=== PATIENT | male | born 1980 | race African-American/Black ===

== ENCOUNTER 2019-01-14 21:52 | Observation (INO) | payer OTHER ==
[2019-01-14] MEDS ORDERED: Metoclopramide HCl 10 MG/2 ML VIAL ONE (23:36)
[2019-01-14] MEDS ORDERED: Ketorolac Tromethamine 30 MG/ML VIAL ONE (23:36)
[2019-01-14] MEDS ORDERED: diphenhydrAMINE 50 MG/ML VIAL ONE (23:36)
[2019-01-14 23:42] LABS: #Eosinphils 0.2 thou/uL (0.0-0.7); #Lymphocytes 2.1 thou/uL (1.20-3.40); #Monocytes 0.5 thou/uL (0.11-0.59); %Basophils 0.7 % (0.0-1.0); %Monocytes 7.5 % (0.0-10.0); %Neutrophils 58.9 % (42.0-75.0); Hemoglobin 12.2 g/dL (14.0-18.0); Mean Corpuscular HGB CONC 33.3 g/dL (32.0-36.0); Mean Corpuscular Hemoglobin 29.1 pg (27.0-31.0); Mean Corpuscular Volume 87.1 fL (78.0-98.0); Mean Platelet Volume 8.5 fL (7.4-10.4); Platelet Count 276 thou/uL (130-400); RBC Distribution Width 12.7 % (11.5-14.5); Red Blood Cell (RBC) Count 4.21 mill/uL (4.70-6.10); White Blood Cell (WBC) Count 6.8 thou/uL (4.8-10.8)
[2019-01-15 00:03] LABS: ALT (SGPT) 30 U/L (8-55); AST (SGOT) 24 U/L (5-34); Albumin 4.5 g/dL (3.5-5.0); Alkaline Phosphatase 80 U/L (40-150); Anion Gap 13 mmol/L (10-20); BUN (Urea Nitrogen) 17 mg/dL (8.9-20.6); Bilirubin, Total 0.5 mg/dL (0.2-1.2); Calc. Creatinine Clearance 0 mL/min (70-130); Calcium 9.6 mg/dL (7.8-10.44); Carbon Dioxide 25 mmol/L (22-29); Chloride 108 mmol/L (98-107); Estimated GFR-MDRD 27; Globulin 3.7 g/dL (2.4-3.5); Glucose 95 mg/dL (70-105); Potassium 3.5 mmol/L (3.5-5.1); Protein, Total 8.2 g/dL (6.0-8.3); Sodium 142 mmol/L (136-145)
[2019-01-15 01:40] LABS: Bilirubin Negative (Negative); Blood, Urine Trace (Negative); Clarity CLEAR (Clear); Glucose, Urine (Dipstick) Negative (Negative); Leukocyte Negative (Negative); Nitrite Negative (Negative); Protein, Urine (Dipstick) Trace mg/dL (Neg-Trace); Specific Gravity, Urine 1.006 (1.002-1.036); Urobilinogen 0.2 mg/dL (0.2-1.0); pH, Urine 6.5 (5.0-9.0)
[2019-01-15 01:45] LABS: Bacteria/HPF None Seen HPF (None Seen); Hyaline Casts/LPF 0-3 HYALINE CAST LPF (0-3 Hyaline); RBC/HPF 0-3 HPF (0-3); Squamous Epithelial None Seen HPF (0-3); WBC/HPF 0-3 HPF (0-3)
[2019-01-15 02:56] VITALS: BMI 36.3
[2019-01-15] MEDS ORDERED: Acetaminophen 325 MG TAB PO PRN (03:09)
[2019-01-15] MEDS ORDERED: Ondansetron ODT 4 MG TAB SL PRN (03:09)
[2019-01-15] MEDS ORDERED: HYDROcodone/Acetaminophen 5/325 mg Tablet PO PRN ×2 (03:09)
[2019-01-15] MEDS ORDERED: Ondansetron PF 4 MG/2 ML Vial IVP PRN (03:09)
[2019-01-15] MEDS: Sodium Chloride 0.45% 1,000 ML IV SCH ×2 (03:42→14:01)
--- NOTE | 2019-01-15 07:58 | RAD ---
FRadiograph chest one view: HISTORY: 38-year-old male with hypertension FINDINGS: Visualized lung curry are grossly clear. No pneumothorax. IMPRESSION: No acute pulmonary findings.
[2019-01-15] MEDS ORDERED: Senokot S 8.6-50 MG TAB PO PRN (08:13)
[2019-01-15] MEDS ORDERED: Zolpidem Tartrate 5 MG TAB PO PRN (08:13)
[2019-01-15] MEDS ORDERED: Diabetic Tussin 200 MG/10 ML UDCUP PO PRN (08:13)
[2019-01-15] MEDS ORDERED: Sodium Chloride 0.65% Nasal 44 ML BOT EA NARE PRN (08:13)
[2019-01-15] MEDS ORDERED: Eucerin (Mineral Oil/Petrolatum,White) 30 gm Jar TOP PRN (08:13)
[2019-01-15] MEDS ORDERED: Artificial Tears 18 DROP/0.9 ML EA EYE PRN (08:13)
[2019-01-15] MEDS ORDERED: Loperamide HCl 2 MG CAP PO PRN (08:13)
[2019-01-15] MEDS ORDERED: Bisacodyl 10 MG SUPP PR PRN (08:13)
[2019-01-15] MEDS ORDERED: hydrALAZINE 20 MG/ML VIAL SLOW IVP PRN (08:13)
[2019-01-15] MEDS ORDERED: Cepastat Lozenges 1 LOZ PO PRN (08:13)
[2019-01-15] MEDS ORDERED: Loratadine 10 MG TAB PO PRN (08:13)
[2019-01-15] MEDS ORDERED: Calcium Carbonate 500 MG ChewTAB PO PRN (08:13)
[2019-01-15] MEDS ORDERED: Lorazepam 0.5 MG TAB PO PRN (08:13)
[2019-01-15] MEDS ORDERED: RIBAVIRIN PO SCH (09:00)
[2019-01-15] MEDS ORDERED: Ribavirin 200 MG CAP PO SCH (09:00)
[2019-01-15] MEDS ORDERED: RIBOFLAVIN 100 MG PO SCH (09:00)
--- NOTE | 2019-01-15 09:43 | ULT ---
FUltrasound renal: 01/15/2019 HISTORY: 38-year-old male with acute kidney injury superimposed on chronic kidney disease. FINDINGS: Bilateral renal parenchymal echogenicity is diffusely mildly increased, consistent with medical renal disease. No hydronephrosis bilaterally. No moderate sized or large cystic or solid renal mass identified. Right kidney: 10.5 x 5.5 x 5.5 cm. Left kidney: 10.5 x 5.5 x 5 cm. Normal appearance of urinary bladder with volume of 515 mL. IMPRESSION: 1. No hydronephrosis. 2. Abnormal renal parenchymal echogenicity is evidence for medical renal disease.
[2019-01-15] MEDS ORDERED: Amlodipine 10 MG TAB PO SCH ×2 (10:45→21:00)
[2019-01-15 10:56] LABS: Creatinine, Urine 129.77 mg/dL (63-166)
[2019-01-15] MEDS ORDERED: Carvedilol 6.25 MG TAB PO SCH (11:00)
[2019-01-15 11:10] LABS: Bilirubin Negative (Negative); Blood, Urine Negative (Negative); Clarity CLEAR (Clear); Glucose, Urine (Dipstick) Negative (Negative); Leukocyte Negative (Negative); Nitrite Negative (Negative); Protein, Urine (Dipstick) Trace mg/dL (Neg-Trace); Specific Gravity, Urine 1.009 (1.002-1.036); Urobilinogen 0.2 mg/dL (0.2-1.0)
--- NOTE | 2019-01-15 11:35 | HP ---
PRIMARY CARE PHYSICIAN: Dr. Trevino, [facility]. REASON FOR ADMISSION: Acute kidney failure. HISTORY OF PRESENT ILLNESS: A 38-year-old male, who has underlying history of hypertension and obesity. The patient was told by his primary care physician that he has underlying chronic kidney disease. The patient does not have any more detail about that. The patient has migraine headache. Lately, his migraine headache is getting worse. Previously, he was taking ibuprofen, but subsequently his primary care physician was instructed him to take Excedrin as needed basis. He was requiring exited in almost every other day and sometimes more than twice per day. He denies any focal neurological deficit. He denies any aura associated with migraine. He denies any fever, chills, or focal motor neurological symptoms, but yesterday, he had typical migraine type of headache and it was associated with vomiting and that is why he decided to come to emergency room for evaluation. In the emergency room, he was slightly hypertensive. His routine blood test showed acute on chronic kidney failure. His creatinine in our hospital in 2016, 1.56 and today 3.21. The patient was started on IV fluid. Subsequently, he was admitted to telemetry floor for observation. The patient denies any constipation, diarrhea, melena, or hematochezia. He denies any fever, chills, or UTI symptoms. He denies any chronic pain other than migraine headache. REVIEW OF SYSTEMS: CONSTITUTIONAL: Negative for weight loss or gain, ability to conduct usual activities. SKIN: Negative for rash, itching. EYES: Negative for double vision, pain. ENT/MOUTH: Negative for nose bleeding, neck stiffness, pain, tenderness. CARDIOVASCULAR: Negative for palpitations, dyspnea on exertion, orthopnea. RESPIRATORY: Negative for shortness of breath, wheezing, cough, hemoptysis, fever or night sweats. GASTROINTESTINAL: Negative for poor appetite, abdominal pain, heartburn, nausea, vomiting, constipation, or diarrhea. GENITOURINARY: Negative for urgency, frequency, dysuria, nocturia. MUSCULOSKELETAL: Negative for pain, swelling. NEUROLOGIC/PSYCHIATRIC: Negative for anxiety, depression. ALLERGY/IMMUNOLOGIC: Negative for skin rash, bleeding tendency. Please see my HPI for pertinent positives and negatives. All other review of systems reviewed and negative except as mentioned in HPI. PAST MEDICAL HISTORY: Chronic kidney disease stage 3, hypertension, obesity, and history of cervical C5-C6 fracture. PAST SURGICAL HISTORY: Reviewed and negative. PAST PSYCHIATRIC HISTORY: Anxiety and depression. SOCIAL HISTORY: The patient drinks alcohol socially once a month. He denies smoking. He denies any other illicit drug abuse. He is . FAMILY HISTORY: Hypertension runs among several family members. ALLERGIES: NO KNOWN DRUG ALLERGIES. CURRENT HOME MEDICATIONS: 1. Amlodipine 10 mg daily. 2. Lisinopril 40 mg daily. 3. Lorazepam 0.5 mg b.i.d. p.r.n. 4. Zoloft 100 mg p.o. daily. 5. Excedrin 2 tablets daily p.r.n. EMERGENCY ROOM COURSE: The patient has received Reglan, Toradol, Benadryl, and IV fluid. PHYSICAL EXAMINATION: VITAL SIGNS: On arrival, blood pressure 169/112, pulse 96, respiratory rate 20, temperature 97.9, and saturation 100% on room air. Weight 92.5 kg. GENERAL: The patient is currently alert and awake. No obvious acute distress. HEENT: Head, normocephalic and atraumatic. Eyes, pupils round and reactive to light. Extraocular muscle intact. ENT, oropharynx within normal limits. Moist mucous membranes. No oral lesion. No pharyngeal erythema. No exudate. NECK: Supple. No JVD. No thyromegaly. No carotid bruit. LUNGS: Clear to auscultation without any rhonchi or rales. CARDIAC: S1 and S2. Regular. No murmur. No gallop. No rub. ABDOMEN: Soft and obesity present. Bowel sounds present. Nontender and nondistended. No organomegaly. No mass. No suprapubic tenderness. BACK: Unremarkable. No CVA tenderness. EXTREMITIES: Upper extremities, passive movement of all joints are normal. Lower extremities, no edema. Good distal pulsation. SKIN: No skin rash. HEMATOLOGICAL SYSTEM: No lymphadenopathy. PSYCHIATRIC: Normal affect. SIGNIFICANT LABORATORY DATA: EKG showing normal sinus rhythm, T-wave inversion in lateral leads. LVH with repolarization changes. Significant labs, renal ultrasound unremarkable. Chronic renal disease noted. CBC; WBC 6.8, hemoglobin 12.2, and platelets were 276. BMP; sodium 142, potassium 3.5, chloride 108, carbon dioxide 25, BUN 17, creatinine 3.21, glucose 95, calcium 9.6. LFT; AST 24, ALT 30, alkaline phosphatase 80, albumin 4.5. Troponin negative. Urinalysis unremarkable. Chest x-ray based on my review, no acute cardiopulmonary process. ASSESSMENT AND PLAN: 1. Acute on chronic kidney failure, baseline chronic kidney disease stage 3, multifactorial etiology, suspecting from his previous nonsteroidal anti-inflammatory drug use as well as hypertension and nephrosclerosis. We did ultrasound kidney. We will consult Nephrology. We will check urine protein creatinine ratio. We will avoid nephrotoxins agent. We will check PTH, phosphorus, and vitamin D level. 2. Hypertension with hypertensive urgency. As the patient has left ventricular hypertrophy with repolarization changes, we will check aldosterone, plasma renin activity. 3. Hypertension chronically, not well controlled. We will continue with amlodipine 10 mg daily and Coreg 6.25 mg b.i.d. We will hold on lisinopril therapy and will use p.r.n. basis hydralazine. 4. Anxiety and depression. We will continue Zoloft 100 mg daily and lorazepam p.r.n. basis. 5. Obesity with BMI 36. Dietary education given. Weight loss education given. Healthy lifestyle measure discussed with the patient. 6. Migraine headache. The patient is advised to follow up with Neurology as an outpatient basis. We will control his pain with Tylenol p.r.n. basis. 7. Deep venous thrombosis prophylaxis, sequential compression devices boots. Gastrointestinal prophylaxis, Pepcid 20 mg p.o. daily. 8. Code status. The patient is full code. The patient does not have any surrogate decision maker. DISPOSITION PLAN: Based on clinical course, we will repeat renal function test tomorrow. If renal function remains stable in the same range, then the patient will need outpatient Nephrology followup for continuous monitoring of renal function. At that point, we will consider discharging him home tomorrow. Job ID: [id number]
--- NOTE | 2019-01-15 11:49 | CON ---
DATE OF CONSULTATION: 01/15/2019 CONSULTING PHYSICIAN: Brian Martinez MD REASON FOR CONSULTATION: Renal insufficiency. CHIEF COMPLAINT: Severe headache. HISTORY OF PRESENT ILLNESS: A 38-year-old male with known history of hypertension diagnosed in his early 20s as well as migraine headache, who presented to the hospital with acute onset of severe bitemporal headache associated with photophobia and an episode of emesis. The patient also reported to have his blood pressure markedly elevated at 190 at home. Pain persisted despite taking his usual medication of Maxalt sublingual, hence presentation to the emergency room. The patient was treated with ketorolac, normal saline, diphenhydramine, and Reglan with some improvement. Further evaluation revealed creatinine of 3.21, hence Nephrology consult for further evaluation and treatment. The patient reported long-time use of NSAIDs for migraine, but had to stop that about 2 years ago due to elevation in creatinine. He however continues to take Excedrin Migraine two tablets up to 2 times a day for headaches and neck pain. The patient reportedly had an accident in the past during which he sustained neck injury and has chronic neck pain for which he takes Excedrin Migraine. The patient reportedly was diagnosed with hypertension in his early 20s and has been on antihypertensives, lisinopril and amlodipine. He also reported being on hydrochlorothiazide at some point in the past, but currently only takes lisinopril and amlodipine. He denied chest pain, change in bowel habit, palpitations, diarrhea, or poor intake. Appetite and intake has been great except an episode of emesis yesterday. PAST MEDICAL HISTORY: 1. Hypertension. 2. Migraine. 3. Chronic neck pain. PAST SURGICAL HISTORY: None. FAMILY HISTORY: Significant for hypertension in father and mother. Father from brain aneurysm. SOCIAL HISTORY: The patient lives with spouse. Denied alcohol or recreational drug use. He is a and most of his care is obtained through the services. ALLERGIES: NO KNOWN DRUG ALLERGIES REPORTED. HOME MEDICATIONS: 1. Amlodipine 10 mg daily at bedtime. 2. Excedrin Migraine 1 to 2 tablets b.i.d. p.r.n. 3. Lisinopril 40 mg daily. 4. Maxalt p.r.n. 5. Riboflavin 100 mg p.o. daily. 6. Sertraline 100 mg p.o. daily. 7. Lorazepam 0.5 mg p.o. b.i.d. REVIEW OF SYSTEMS: The patient's spouse reported that the patient snores at night and occasionally have apneic episodes. Other components of 12-point review of system performed was negative other than pertinent positives and negatives included in the history of present illness. PHYSICAL EXAMINATION: VITAL SIGNS: Temperature 98.3, pulse 84, respiratory rate 16, SpO2 of 98 on room air, and blood pressure is 140/80. GENERAL: Obese young male, in no obvious distress. Afebrile, anicteric, acyanotic. HEENT: Normocephalic, atraumatic. Pupils are equal and reacting to light. Oral mucosa is moist. NECK: Supple with no obvious masses or lymphadenopathy. CARDIOVASCULAR: Regular rhythm and rate with normal heart sounds one and two. RESPIRATORY: Fair air entry bilaterally with no obvious crackle or rhonchi. GI: Abdomen is obese, soft, nontender, nondistended with normal bowel sounds. EXTREMITIES: Grossly normal looking atraumatic with no edema, erythema, or cyanosis. NEUROLOGIC: Conscious, alert and oriented x3 with appropriate mental status. Cranial nerves 2 through 12 are intact. The patient moves all extremities. DIAGNOSTIC DATA: CMP performed on January 14, 2019, showed sodium 145, potassium 3.5, chloride 108, CO2 of 25, BUN 17, creatinine 3.21, glucose 95, calcium 9.6, total bilirubin 0.5, AST 24, ALT 30, alkaline phosphatase 80, total protein 8.2, albumin 4.5, globulin 3.7. CBC performed on January 14, 2019, showed WBC count of 6.8, hemoglobin of 12.2, MCV of 87.1, and platelet of 276. Urinalysis showed pH of 6.5, specific gravity of 1.006, negative glucose, ketones, nitrite, bilirubin, and leukocyte esterase. Microscopy showed 0-3 wbc and 0-3 rbc. EKG showed normal sinus rhythm with LVH and T-wave inversion in lateral leads. Chest x-ray showed no acute findings. Renal ultrasound performed earlier today showed normal size kidneys measuring 10.5 x 5.5 and 5, with increased echogenicity consistent with medical renal disease. No hydronephrosis was noted bilaterally. ASSESSMENT: 1. Renal failure: Acute is unclear. This is either acute kidney injury on chronic kidney disease or chronic kidney disease alone. The patient reported regular prolonged use of NSAIDs in the past, making NSAID nephropathy most likely. He also has had longstanding hypertension, making hypertensive nephropathy equally likely. Urinalysis, however, showed trace protein. 2. The patient continues to use NSAIDs in the form of Excedrin Migraine, which contains 250 mg of aspirin. He takes about 2 tablets b.i.d., that is about 1000 mg daily. He also is on lisinopril 40 mg daily. Acute reversible component from hemodynamic effect of NSAID and lisinopril cannot be ruled out. 3. Hypertension: This occurring at an early age associated with features of hypertensive heart disease and history of aneurysm in father points to secondary hypertension. The patient also has history of snoring and apneic spells as narrated by spouse. Secondary hypertension from obstructive sleep apnea and primary hyperaldosteronism is possible. 4. Moderate obesity. 5. Chronic neck pain. 6. Migraine headache. 7. Suspected CORY: given history of snoring and apeneic spells while asleep as per spouse PLAN: 1. Agree with IV fluid therapy. 2. We will add Coreg 6.25 to amlodipine. 3. We will hold lisinopril at this time. 4. Avoid NSAIDs including Excedrin Migraine. 5. We will get urine electrolytes, as well as urine protein quantification. 6. We will also get serum aldosterone and renin activity. 7. The patient has been advised to follow up with PCP for further referral for sleep study. 8. We will monitor renal function with IV fluid therapy to see if there is any reversible component while holding lisinopril and avoiding NSAIDs. Many thanks for involving us in the care of this patient. We will follow along with you. Job ID: [id number] [facility] SYSTEMColleen
[2019-01-15 13:27] LABS: Anion Gap 13 mmol/L (10-20); BUN (Urea Nitrogen) 21 mg/dL (8.9-20.6); BUN/Creatinine Ratio 6.48; Calc. Creatinine Clearance 45 mL/min (70-130); Calcium 8.9 mg/dL (7.8-10.44); Carbon Dioxide 25 mmol/L (22-29); Chloride 109 mmol/L (98-107); Estimated GFR-MDRD 26; Glucose 99 mg/dL (70-105); Phosphorus 3.1 mg/dL (2.3-4.7); Potassium 3.5 mmol/L (3.5-5.1); Sodium 143 mmol/L (136-145)
[2019-01-15] MEDS: Carvedilol 6.25 MG TAB PO SCH (21:43)
[2019-01-15] MEDS: Acetaminophen 500 MG TAB PO PRN (21:43)
[2019-01-16] MEDS: Sodium Chloride 0.45% 1,000 ML IV SCH (01:47)
[2019-01-16 05:25] LABS: #Eosinphils 0.2 thou/uL (0.0-0.7); #Lymphocytes 1.7 thou/uL (1.20-3.40); #Monocytes 0.5 thou/uL (0.11-0.59); #Neutrophils 2.8 thou/uL (1.40-6.50); %Basophils 0.2 % (0.0-1.0); %Eosinophils 3.4 % (0.0-10.0); %Lymphocytes 32.4 % (21.0-51.0); %Monocytes 8.9 % (0.0-10.0); %Neutrophils 55.1 % (42.0-75.0); Hemoglobin 10.3 g/dL (14.0-18.0); Mean Corpuscular HGB CONC 33.5 g/dL (32.0-36.0); Mean Corpuscular Hemoglobin 29.2 pg (27.0-31.0); Mean Corpuscular Volume 87.1 fL (78.0-98.0); Mean Platelet Volume 8.6 fL (7.4-10.4); Platelet Count 236 thou/uL (130-400); RBC Distribution Width 12.4 % (11.5-14.5); Red Blood Cell (RBC) Count 3.55 mill/uL (4.70-6.10); White Blood Cell (WBC) Count 5.1 thou/uL (4.8-10.8)
[2019-01-16 05:45] LABS: Albumin 3.8 g/dL (3.5-5.0); Anion Gap 10 mmol/L (10-20); BUN (Urea Nitrogen) 21 mg/dL (8.9-20.6); BUN/Creatinine Ratio 6.58; Calc. Creatinine Clearance 46 mL/min (70-130); Calcium 8.8 mg/dL (7.8-10.44); Carbon Dioxide 25 mmol/L (22-29); Chloride 111 mmol/L (98-107); Estimated GFR-MDRD 27; Glucose 96 mg/dL (70-105); Phosphorus 3.5 mg/dL (2.3-4.7); Potassium 3.7 mmol/L (3.5-5.1); Sodium 142 mmol/L (136-145)
[2019-01-16] MEDS: Carvedilol 6.25 MG TAB PO SCH (08:46)
[2019-01-16] MEDS: Famotidine 20 MG TAB PO SCH (08:46)
[2019-01-16] MEDS: Amlodipine 10 MG TAB PO SCH (08:46)
[2019-01-16] MEDS ORDERED: Carvedilol 6.25 MG TAB PO SCH (10:15)
--- NOTE | 2019-01-16 11:12 | PRG ---
DATE OF SERVICE: 01/16/2019 SUBJECTIVE: A 38-year-old male admitted with headache and elevated blood pressure, who has been followed by Nephrology for renal failure. Headache has subsided and the patient is feeling better. He is making urine. Denied nausea, vomiting, chest pain, abdominal pain, or dysuria. OBJECTIVE: VITAL SIGNS: Temperature 97.9, pulse 76, respiratory rate 20, SpO2 of 97 on room air, and blood pressure 157/81. GENERAL: Young male, in no obvious distress. Afebrile, anicteric, and acyanotic. HEENT: Normocephalic and atraumatic. Pupils are equal and reacting to light. RESPIRATORY: Good air entry bilaterally with no crackle or rhonchi. CARDIOVASCULAR: Regular rhythm and rate. Normal heart sounds 1 and 2. Systolic murmur heard in the aortic area noted. GI: Abdomen is obese, soft, nontender, and nondistended with normal bowel sounds. EXTREMITIES: Grossly normal looking atraumatic with no edema, erythema, or cyanosis. Distal pulses are palpable. NEUROLOGIC: Conscious, alert, and oriented x3 with appropriate mental status. Cranial nerves 2 through 12 are intact. The patient moves all extremities. DIAGNOSTIC DATA: Renal function panel today showed; sodium 142, potassium 3.7, chloride 111, CO2 of 25, BUN 21, creatinine 3.19, glucose 96, calcium 8.8, phosphorus 3.5, and albumin 3.8. A 25-hydroxyvitamin D is 9.6. PTH intact is 321.9. Random total urine is 90 mg/dL. Random urine creatinine is 129.77 and random urine sodium is 68. Fractional excretion of sodium is 1.19%. CBC today showed WBC count of 5.1, hemoglobin of 10.3, and platelet of 236. ASSESSMENT: 1. Renal failure: This is either acute kidney injury on chronic kidney disease or chronic kidney disease alone. The patient has overt evidence of chronic kidney disease given the ultrasound showing echogenicity as well as secondary hyperparathyroidism. Etiology is unclear. May acute glomerulonephritis or nonsteroidal anti-inflammatory drug nephropathy seems likely. Creatinine went down a little bit with IV fluids. There may be some reversible component. Fractional excretion of sodium is only 1.16, which is not overtly in support of prerenal etiology. 2. Secondary hyperparathyroidism due to chronic kidney disease. 3. Hypertension. Control is better, but still suboptimal. 4. Heart murmur of unclear etiology. 5. Possible obstructive sleep apnea. Spouse reported snoring and apneic spells. 6. Moderate obesity. PLAN: 1. We will substitute normal saline with Ringer's lactate due to worsening hyperchloremia. 2. We will increase carvedilol to 25 mg p.o. b.i.d. while continuing amlodipine 10. We will continue to hold lisinopril at this time. 3. We will get coagulation panel and we will proceed with renal biopsy tomorrow if there is no significant improvement in renal function. Care plan was discussed with the patient and spouse and they verbalized understanding. 4. We will also start the patient on calcitriol and 25-hydroxyvitamin D supplementation for hyperparathyroidism and vitamin D deficiency. 5. We will get renal function panel in the morning. Job ID: [id number]
[2019-01-16] MEDS: Lactated Ringer's 1,000 ML IV SCH ×2 (11:25→21:09)
--- NOTE | 2019-01-16 17:31 | PDOC.PN ---
- Subjective Encounter Start Date: 01/16/19 Encounter Start Time: 17:29 Patient lying in bed with significant other at bedside. He denies chest pain, palpitations, shortness of breath or abdominal pain. Nephrology following and plan for lactated ringers and titrate BB. - Objective MAR Reviewed: Yes Vital Signs & Weight: Vital Signs (12 hours) Temp Pulse Resp BP BP Pulse Ox 01/16/19 15:54 97.8 F 66 16 144/94 H 97 01/16/19 11:48 98.3 F 81 16 160/103 H 97 01/16/19 11:25 160/103 H 01/16/19 08:46 79 157/81 H 01/16/19 08:00 97.9 F 76 20 154/100 H 97 Weight Weight 225 lb 9.6 oz I&O: 01/15/19 01/16/19 01/17/19 06:59 06:59 06:59 Intake Total 1141 3540 Output Total 500 Balance 1141 3040 Result Diagrams: 01/16/19 04:38 01/16/19 04:38 Radiology Reviewed by me: Yes EKG Reviewed by me: Yes Phys Exam - Physical Examination Constitutional: NAD HEENT: moist MMs, oral pharynx no lesions Neck: supple Respiratory: no wheezing, clear to auscultation bilateral Cardiovascular: RRR 2/6 systolic murmur Gastrointestinal: soft, positive bowel sounds Musculoskeletal: pulses present Neurological: non-focal, moves all 4 limbs Lymphatic: no nodes Psychiatric: normal affect, A&O x 3 Skin: no rash, cap refill <2 seconds Dx/Plan (1) Acute renal failure superimposed on stage 3 chronic kidney disease Code(s): N17.9 - ACUTE KIDNEY FAILURE, UNSPECIFIED; N18.3 - CHRONIC KIDNEY DISEASE, STAGE 3 (MODERATE) Status: Acute (2) Anxiety and depression Code(s): F41.9 - ANXIETY DISORDER, UNSPECIFIED; F32.9 - MAJOR DEPRESSIVE DISORDER, SINGLE EPISODE, UNSPECIFIED Status: Chronic (3) Hypertension Code(s): I10 - ESSENTIAL (PRIMARY) HYPERTENSION Status: Chronic (4) Obesity (BMI 30-39.9) Code(s): E66.9 - OBESITY, UNSPECIFIED Status: Chronic - Plan cont current plan of care, plan discussed w/ family * Nephrology following, continuing with lactated ringers and current plan, ifno improvement may consider proceeding with renal bx * Titrate BB and continue with amlodipine, home CHAY on hold * Monitor BMP * Continue other home meds *
[2019-01-16] MEDS: Carvedilol 25 MG TAB PO SCH (20:36)
[2019-01-16] MEDS: Acetaminophen 500 MG TAB PO PRN (21:28)
[2019-01-17 05:28] LABS: #Eosinphils 0.2 thou/uL (0.0-0.7); #Lymphocytes 2.3 thou/uL (1.20-3.40); #Monocytes 0.4 thou/uL (0.11-0.59); #Neutrophils 2.6 thou/uL (1.40-6.50); %Basophils 0.8 % (0.0-1.0); %Eosinophils 3.6 % (0.0-10.0); %Lymphocytes 41.1 % (21.0-51.0); %Monocytes 8.1 % (0.0-10.0); %Neutrophils 46.5 % (42.0-75.0); Hemoglobin 9.7 g/dL (14.0-18.0); Mean Corpuscular HGB CONC 34.3 g/dL (32.0-36.0); Mean Corpuscular Hemoglobin 29.8 pg (27.0-31.0); Mean Corpuscular Volume 86.9 fL (78.0-98.0); Mean Platelet Volume 8.5 fL (7.4-10.4); Platelet Count 222 thou/uL (130-400); RBC Distribution Width 12.3 % (11.5-14.5); Red Blood Cell (RBC) Count 3.24 mill/uL (4.70-6.10); White Blood Cell (WBC) Count 5.5 thou/uL (4.8-10.8)
[2019-01-17 05:29] LABS: PTT 30.9 SEC (22.9-36.1); Prothrombin Time 13.5 SEC (12.0-14.7)
[2019-01-17 05:45] LABS: Albumin 3.7 g/dL (3.5-5.0); Anion Gap 12 mmol/L (10-20); BUN (Urea Nitrogen) 21 mg/dL (8.9-20.6); BUN/Creatinine Ratio 7.02; Calc. Creatinine Clearance 49 mL/min (70-130); Calcium 8.8 mg/dL (7.8-10.44); Carbon Dioxide 23 mmol/L (22-29); Chloride 110 mmol/L (98-107); Estimated GFR-MDRD 29; Glucose 88 mg/dL (70-105); Phosphorus 4.2 mg/dL (2.3-4.7); Potassium 3.5 mmol/L (3.5-5.1); Sodium 141 mmol/L (136-145)
--- NOTE | 2019-01-17 08:29 | PRG ---
DATE OF SERVICE: 01/17/2019 SUBJECTIVE: A 38-year-old male being seen for renal failure of unclear etiology and acuity. The patient initially was admitted due to severe headaches, which has subsided at this time. Denied any new complaints. Denied nausea, vomiting, or chest pain. OBJECTIVE: VITAL SIGNS: Temperature 97.6, pulse 66, respiratory rate 16, SpO2 of 98 on room air, and blood pressure 134/84. GENERAL: No acute issues. Afebrile, anicteric, and acyanotic. HEENT: Normocephalic and atraumatic. Pupils are equal and reactive to light. CARDIOVASCULAR: Regular rhythm and rate. Normal heart sounds 1 and 2. Systolic murmur noted. RESPIRATORY: Good air entry bilaterally with no obvious crackle or rhonchi. GI: Obese, soft, nontender, and nondistended with normal bowel sounds. EXTREMITIES: Grossly normal looking atraumatic with no edema or erythema. NEUROLOGIC: Conscious and alert, oriented x3 with appropriate mental status. Moves all extremities. Cranial nerves 2 through 12 are intact. DIAGNOSTIC DATA: Renal function panel shows sodium 141, potassium 3.5, chloride 110, CO2 of 23, BUN 21, creatinine 2.99, BUN and creatinine ratio 7.02, glucose 88, calcium 8.2, phosphorus 4.2, albumin 3.9. CBC showed WBC count of 5.5, hemoglobin of 9.7, and platelet of 222. PLAN/ASSESSMENT: 1. Renal failure: Acute kidney injury on chronic kidney disease versus chronic kidney disease stage 3. Etiology is unclear. There has been no significant improvement with IVF. The patient however has history of hypertension and used NSAID regularly in the past. We will DC IVF and get renal biopsy today. 2. Hypertension: Control is suboptimal. We will substitute amlodipine with nifedipine with a view to increase dose to get adequate BP control.Continue Coreg. 3. Secondary hyperparathyroidism. Continue vitamin D analog. 4. Vitamin D deficiency. Continue with vitamin D supplementation. Addendum: Patient could not get renal biopsy but he reported he took excedrin migraine about 4 days ago and interventional radiologist wanted 7 days off ASA Patient will not have renal biopsy from home. He can be discharged to follow up in the office for further arrangement. Job ID: [id number] [facility]
[2019-01-17] MEDS ORDERED: Calcitriol 0.25 MCG CAP PO SCH (09:00)
[2019-01-17] MEDS ORDERED: Ergocalciferol 1.25 MG(50,000 UNITS) CAP PO SCH (09:00)
[2019-01-17] MEDS: Amlodipine 10 MG TAB PO SCH (09:23)
[2019-01-17] MEDS: Carvedilol 25 MG TAB PO SCH (09:23)
[2019-01-17] MEDS: Famotidine 20 MG TAB PO SCH (09:24)
[2019-01-17] MEDS: Lactated Ringer's 1,000 ML IV SCH (10:39)
[2019-01-17 12:16] VITALS: TEMP 97.9
[2019-01-17] MEDS ORDERED: NIFEdipine XL 30 MG TAB PO SCH (13:30)
[2019-01-17 14:50] VITALS: BP 139/89
--- NOTE | 2019-01-18 05:33 | DIS ---
DATE OF ADMISSION: 01/15/2019 DATE OF DISCHARGE: 01/17/2019 ALLERGIES: NO KNOWN DRUG ALLERGIES. CHIEF COMPLAINT: Migraine headache with associated emesis, hypertension. FINAL DIAGNOSES: 1. Renal failure, with creatinine around 3, unknown etiology, questionably secondary to hypertensive nephropathy versus nonsteroidal anti-inflammatory drug-induced, also unclear if this is acute kidney injury or chronic kidney disease stage 3. 2. Secondary hyperparathyroidism. 3. Vitamin D deficiency. 4. Hypertension. 5. Migraine. 6. Anxiety and depression. PROCEDURE PERFORMED: None. IMAGING RESULTS: 1. Chest x-ray, no acute pulmonary findings. Renal ultrasound, no hydronephrosis. 2. Abnormal renal parenchymal echogenicity is evidence for medical renal disease. LABORATORY RESULTS: White blood cell count 5.5, hemoglobin 9.7, and hematocrit 28.2, platelets are 12.3. PT 13.5, INR 1.0, APTT 30.9. Sodium 141, potassium 3.5, chloride 110, carbon dioxide 23, anion gap 12, BUN 21, creatinine 2.99, GFR 29, phosphorus 3.7, vitamin D total 9.6, PTH 321.9. Urinalysis was negative. CONSULTATIONS: Dr. Shell of Nephrology. VITAL SIGNS: Blood pressure 139/89, temperature 97.9, pulse 72, O2 saturation 100%. HOSPITAL COURSE: The patient is a pleasant 38-year-old male with past medical history significant for history of migraines with long-standing NSAID use, hypertension, anxiety, and depression, who presented to the hospital with complaints of a migraine headache with headache with associated emesis. The patient also states that his systolic blood pressure at home was running in the 190s, and so he reported to the ER for further workup and treatment. On arrival, labs were most notable for elevated creatinine of around 3. Previous creatinine was noted to be around 1.5. Dr. Shell of Nephrology was consulted. All nephrotoxins were stopped including the patient's lisinopril. His carvedilol was titrated up and amlodipine was continued. The patient was placed both on sodium chloride and then lactated Ringer's throughout his stay and creatinine was monitored closely, however, there was no improvement in his creatinine. Dr. Shell did recommend renal biopsy based on the patient's renal ultrasound, however, ultimately this was not performed as the patient had Excedrin migraine 3 days prior to his admission, and this was deemed unsafe by Interventional Radiology, as the patient would have needed to hold any type of anti-platelet for 7 days. The patient's blood pressure medications were titrated, and ultimately the patient was placed on nifedipine and his carvedilol was titrated up from 6.25 mg b.i.d. to [address] Shell also recommended continuing vitamin D supplementation along with outpatient renal biopsy and followup at the [facility]. On the day of discharge, the patient feels well. His headaches have completely resolved. He has no chest pain or shortness of breath. He has ambulated around his room without issue. He has had adequate urine output as well. PHYSICAL EXAMINATION: GENERAL: The patient is awake and alert, in no distress. HEENT: Atraumatic, normocephalic. Eye movements intact. NECK: Supple. No lymphadenopathy. No carotid bruits. No JVD. RESPIRATORY: Regular respiratory rate and pattern. Clear to auscultation bilaterally. CV: S1 and S2. Regular rate and rhythm. No appreciable murmurs, rubs, or gallops. GI: Soft, nontender, normal bowel sounds. PERIPHERAL VASCULAR: No lower extremity pitting edema. +2 DP pulses bilaterally. MUSCULOSKELETAL: No joint effusions or swelling. NEUROLOGIC: Cranial nerves 2 through 12 are intact. No focal deficits. SKIN: Warm and dry. No rash. CONDITION AT DISCHARGE: Stable. DISCHARGE MEDICATIONS: 1. Lorazepam 0.5 mg tablet one tablet p.o. b.i.d. p.r.n. 2. Vitamin B2 supplement 100 mg tablet, one tablet daily. 3. Sertraline 100 mg tablet, one tablet daily. 4. Calcitriol 0.25 mcg capsule, one capsule p.o. daily. 5. Carvedilol 25 mg tablet, one tablet p.o. b.i.d. 6. Drisdol 1.25 mg capsule one p.o. q.7 days. 7. Nifedipine 60 mg extended release tablet, one tablet p.o. daily. DISCHARGE DISPOSITION: Home. PLAN: The patient has been counseled extensively on avoiding nephrotoxins. We have stopped his lisinopril, and he will discontinue all NSAID use. He will follow up with the [facility] for outpatient renal biopsy, and further recommendations regarding his renal insufficiency. He will continue a renal diet. Care discussed with Dr. Shell prior to discharge, who agrees with the above plan. Job ID: [id number]
== END 2019-01-17 16:25 | disposition home or self-care (01) ==
LOC: ERS 21:52 → 2SW 01-15 02:53
PROVIDERS: ADMIT Internal Medicine; ATTEND Internal Medicine
DX: I12.9 Hypertensive chronic kidney disease with stage 1 through stage 4 chronic kidney disease, or unspecified chronic kidney disease (principal); N18.3 Chronic kidney disease, stage 3 (moderate); N17.9 Acute kidney failure, unspecified; N25.81 Secondary hyperparathyroidism of renal origin; G43.009 Migraine without aura, not intractable, without status migrainosus; E55.9 Vitamin D deficiency, unspecified; F41.8 Other specified anxiety disorders; I16.0 Hypertensive urgency; G89.29 Other chronic pain; M54.2 Cervicalgia; E66.9 Obesity, unspecified; Z68.36 Body mass index [BMI] 36.0-36.9, adult; Z79.899 Other long term (current) drug therapy
CPT/HCPCS: 36415; 36416; 71045; 76770; 80053; 80069; 81003; 81015; 82088; 82306; 82570; 83970; 84156; 84244; 84300; 84484; 85025; 85610; 85730; 93005; 96361; 96365; 96375; G0378; J1200; J1885; J2765

== ENCOUNTER 2020-07-23 08:24 | Day surgery (SDC) | payer OTHER ==
[2020-07-20 11:53] VITALS: BMI 34.2
[2020-07-23 08:45] LABS: #Eosinphils 0.2 thou/uL (0.0-0.7); #Lymphocytes 2.3 thou/uL (1.20-3.40); #Monocytes 0.4 thou/uL (0.11-0.59); #Neutrophils 4.6 thou/uL (1.40-6.50); %Basophils 0.6 % (0.0-1.0); %Eosinophils 3.3 % (0.0-10.0); %Lymphocytes 30.4 % (21.0-51.0); %Monocytes 5.4 % (0.0-10.0); %Neutrophils 60.3 % (42.0-75.0); Hemoglobin 9.3 g/dL (14.0-18.0); Mean Corpuscular HGB CONC 34.9 g/dL (32.0-36.0); Mean Corpuscular Hemoglobin 29.9 pg (27.0-31.0); Mean Corpuscular Volume 85.6 fL (78.0-98.0); Platelet Count 268 thou/uL (130-400); RBC Distribution Width 11.9 % (11.5-14.5); White Blood Cell (WBC) Count 7.6 thou/uL (4.8-10.8)
[2020-07-23 08:54] LABS: PTT 33.2 sec (22.9-36.1)
[2020-07-23 09:00] LABS: Albumin 4.8 g/dL (3.5-5.0); Anion Gap 16 mmol/L (10-20); BUN (Urea Nitrogen) 75 mg/dL (8.9-20.6); BUN/Creatinine Ratio 8.15; Calc. Creatinine Clearance 15 mL/min (70-130); Calcium 9.6 mg/dL (7.8-10.44); Carbon Dioxide 26 mmol/L (22-29); Chloride 104 mmol/L (98-107); Estimated GFR-MDRD 8; Glucose 103 mg/dL (70-105); Phosphorus 4.6 mg/dL (2.3-4.7); Potassium 4.5 mmol/L (3.5-5.1); Sodium 141 mmol/L (136-145)
[2020-07-23 09:33] VITALS: BP 131/85; TEMP 98.2
--- NOTE | 2020-07-23 09:37 | ULT ---
US Renal Bilateral STANDARD History: Kidney injury Comparison: Ultrasound 2019 Findings: Real-time grayscale and color evaluation of the kidneys and urinary bladder was performed. Poor corticomedullary differentiation with increased echotexture. The right kidney measures 9.5 x 5 x 5.4 cm and the left kidney measures 10.5 x 5.2 x 5.1 cm. Urinary bladder is unremarkable. Impression: Echogenic kidneys with poor corticomedullary differentiation suggesting chronic medical r enal disease.
--- NOTE | 2020-07-23 11:02 | CT ---
Renal biopsy random, CT-guided Conscious sedation: At least 30 minutes spent with the patient for conscious sedation. HISTORY: Chronic kidney disease. FINDINGS: After explaining the procedure and answering all questions, limited CT imaging of the kidne ys was performed with patient prone. Sterile technique, buffered local anesthesia, conscious sedation, CT guidance, and a left posterolate ral approach were used to carefully advance the tip of a 17-gauge trocar needle to the hypovascular zone near the inferior pole of the left kidney. Needle was carefully engaged into the cortex, and pos ition confirmed with CT. A total of 3 18-gauge core biopsy specimens were obtained and submitted to Dr. Loera from pathology who confirmed specimen adequacy. Needle was removed. No evidence of complication. Patient tolerated the procedure well and was returne d to the holding area in good condition for further monitoring. IMPRESSION : Technically successful random renal biopsy. Pathology is pending.
--- NOTE | 2020-07-24 12:31 | CT ---
Renal biopsy random, CT-guided Conscious sedation: At least 30 minutes spent with the patient for conscious sedation. HISTORY: Chronic kidney disease. FINDINGS: After explaining the procedure and answering all questions, limited CT imaging of the kidne ys was performed with patient prone. Sterile technique, buffered local anesthesia, conscious sedation, CT guidance, and a left posterolate ral approach were used to carefully advance the tip of a 17-gauge trocar needle to the hypovascular zone near the inferior pole of the left kidney. Needle was carefully engaged into the cortex, and pos ition confirmed with CT. A total of 3 18-gauge core biopsy specimens were obtained and submitted to Dr. Loera from pathology who confirmed specimen adequacy. Needle was removed. No evidence of complication. Patient tolerated the procedure well and was returne d to the holding area in good condition for further monitoring. IMPRESSION : Technically successful random renal biopsy. Pathology is pending. Transcribed Date/Time: 07/24/2020 12:31 PM
== END 2020-07-23 12:20 | disposition home or self-care (01) ==
LOC: CT 08:24
PROVIDERS: ATTEND Internal Medicine Nephrology
PROC: BT22ZZZ Computerized Tomography (CT Scan) of Left Kidney (ICD-10-PCS; principal; 2020-07-23)
PROC: 0TB13ZX Excision of Left Kidney, Percutaneous Approach, Diagnostic (ICD-10-PCS; principal; 2020-07-23)
DX: N11.9 Chronic tubulo-interstitial nephritis, unspecified (principal); I12.9 Hypertensive chronic kidney disease with stage 1 through stage 4 chronic kidney disease, or unspecified chronic kidney disease; N18.9 Chronic kidney disease, unspecified; N17.9 Acute kidney failure, unspecified; F41.9 Anxiety disorder, unspecified; F32.9 Major depressive disorder, single episode, unspecified; E66.9 Obesity, unspecified; Z68.34 Body mass index [BMI] 34.0-34.9, adult
CPT/HCPCS: 36415; 50200; 76770; 77012; 80069; 85025; 85610; 85730; 88329

== ENCOUNTER 2021-09-09 07:36 | Inpatient (IN) | payer OTHER ==
[2021-09-09 08:37] LABS: #Basophils 0.1 thou/uL (0.0-0.2); #Eosinphils 0.1 thou/uL (0.0-0.7); #Monocytes 0.4 thou/uL (0.11-0.59); #Neutrophils 5.3 thou/uL (1.40-6.50); %Basophils 0.7 % (0.0-1.0); %Eosinophils 1.2 % (0.0-10.0); %Lymphocytes 25.7 % (21.0-51.0); %Monocytes 5.2 % (0.0-10.0); %Neutrophils 67.2 % (42.0-75.0); Hemoglobin 11.6 g/dL (14.0-18.0); Mean Corpuscular HGB CONC 34.5 g/dL (32.0-36.0); Mean Corpuscular Hemoglobin 31.8 pg (27.0-31.0); Mean Corpuscular Volume 92.4 fL (78.0-98.0); Mean Platelet Volume 7.8 fL (7.4-10.4); Platelet Count 271 thou/uL (130-400); RBC Distribution Width 16.1 % (11.5-14.5); Red Blood Cell (RBC) Count 3.64 mill/uL (4.70-6.10); White Blood Cell (WBC) Count 7.9 thou/uL (4.8-10.8)
[2021-09-09 09:00] LABS: ALT (SGPT) 11 U/L (8-55); AST (SGOT) 13 U/L (5-34); Albumin 4.7 g/dL (3.5-5.0); Alkaline Phosphatase 113 U/L (40-110); Anion Gap 28 mmol/L (10-20); Bilirubin, Total 0.6 mg/dL (0.2-1.2); Calc. Creatinine Clearance 0 mL/min (70-130); Carbon Dioxide 19 mmol/L (22-29); Chloride 91 mmol/L (98-107); Globulin 4.2 g/dL (2.4-3.5); Glucose 113 mg/dL (70-105); Lipase 245 U/L (8-78); Magnesium 2.4 mg/dL (1.6-2.6); Potassium 5.2 mmol/L (3.5-5.1); Protein, Total 8.9 g/dL (6.0-8.3); Sodium 133 mmol/L (136-145)
[2021-09-09 09:16] LABS: BUN (Urea Nitrogen) 181 mg/dL (8.9-20.6)
[2021-09-09] MEDS ORDERED: Heparin 10,000 UNITS/ 10 ML VIAL ONE ×2 (09:28→11:18)
[2021-09-09 10:52] LABS: HBSAg Index 0.24 S/CO (0-0.99); Hep B Core Total Ab Non-Reactive (NonReactive); Hep B Core Total Index 0.05 S/CO (0-0.79); Hep B Surf Ag Non-Reactive S/CO (NonReactive); Hep C IgG Ab Non-Reactive (NonReactive); Hep C Index 0.11 S/CO (0-0.79)
[2021-09-09 11:01] LABS: HBSAB Concentration 318.19 mIU/mL; Hep B Surf AB Reactive (NonReactive)
[2021-09-09] MEDS ORDERED: Propofol 500 MG/50 ML VIAL ONE (11:12)
[2021-09-09 11:13] LABS: SARS-CoV-2 NAA Rapid Test Not Detected (NotDetected)
[2021-09-09] MEDS ORDERED: Protamine Sulfate 50 MG/5 ML VIAL ONE (11:18)
[2021-09-09] MEDS ORDERED: Sodium Chloride 0.9% 30 ML ONE (11:18)
[2021-09-09] MEDS ORDERED: Bupivacaine PF 0.5% 30 ML VIAL ONE (11:18)
[2021-09-09] MEDS ORDERED: Lidocaine 1% w/Epinephrine 1:100K 20 ML VIAL ONE (11:18)
[2021-09-09] MEDS ORDERED: Heparin 5,000 UNITS/ML VIAL ONE (11:18)
[2021-09-09 11:25] LABS: Bacteria/HPF None Seen HPF (None Seen); Bilirubin Negative (Negative); Blood, Urine 1+ (Negative); Clarity Clear (Clear); Glucose, Urine (Dipstick) Normal (Negative); Ketone, Urine Negative (Negative); Leukocyte Negative Leu/uL (Negative); Nitrite Negative (Negative); Protein, Urine (Dipstick) 10 mg/dL (Neg-Trace); RBC/HPF 0-3 HPF (0-3); Squamous Epithelial None Seen HPF (0-3); Urobilinogen Normal mg/dL (Less than 2); WBC/HPF 0-3 HPF (0-3); pH, Urine 6.5 (5.0-9.0)
[2021-09-09] MEDS ORDERED: Midazolam HCl 2 mg/2 ml Vial ONE (11:53)
[2021-09-09] MEDS ORDERED: Sodium Bicarbonate 150 MEQ in Dextrose 5% in Water 1,000 ML IV SCH (12:00)
[2021-09-09] MEDS ORDERED: Ropivacaine 0.5% HCl/PF (150 MG/30 ML VIAL) ONE (12:01)
[2021-09-09] MEDS ORDERED: PROPOFOL 200 MG/20 ML VIAL ONE (12:01)
[2021-09-09] MEDS ORDERED: Lidocaine 1% PF 5 ML VIAL ONE (12:01)
[2021-09-09] MEDS ORDERED: ceFAZolin Sodium (SDC) 2 GM/100 ML BAG ONE (12:03)
[2021-09-09] MEDS ORDERED: Promethazine HCl 25 MG/ML VIAL IM PRN (13:52)
[2021-09-09] MEDS ORDERED: Ondansetron HCl/PF 4 MG/2 ML Vial IVP PRN (13:52)
[2021-09-09] MEDS ORDERED: Promethazine HCl 25 MG/ML VIAL IVPB PRN (13:52)
[2021-09-09] MEDS ORDERED: Fentanyl 100 MCG/2 ML VIAL ONE ×2 (14:01→14:59)
[2021-09-09] MEDS ORDERED: traMADol HCl 50 MG TAB PO PRN (14:16)
[2021-09-09] MEDS ORDERED: Cyclobenzaprine 10 MG TAB PO SCH (20:15)
[2021-09-09] MEDS: Acetaminophen 500 MG TAB PO PRN (20:40)
[2021-09-10 01:52] VITALS: BMI 32.6
[2021-09-10] MEDS: HYDROcodone/Acetaminophen 5/325 mg Tablet PO PRN ×4 (04:18→16:46)
[2021-09-10] MEDS ORDERED: Cyclobenzaprine 10 MG TAB PO SCH (06:00)
[2021-09-10 06:51] LABS: Anion Gap 20 mmol/L (10-20); BUN (Urea Nitrogen) 125 mg/dL (8.9-20.6); Calc. Creatinine Clearance 7 mL/min (70-130); Calcium 8.9 mg/dL (7.8-10.44); Carbon Dioxide 31 mmol/L (22-29); Chloride 87 mmol/L (98-107); Glucose 109 mg/dL (70-105); Magnesium 2.2 mg/dL (1.6-2.6); Potassium 4.4 mmol/L (3.5-5.1); Sodium 134 mmol/L (136-145)
[2021-09-10] MEDS: Acetaminophen 500 MG TAB PO PRN ×2 (07:42→13:57)
[2021-09-10] MEDS ORDERED: Heparin 10,000 UNITS/ 10 ML VIAL ONE (09:36)
[2021-09-10] MEDS ORDERED: Carvedilol 6.25 MG TAB PO SCH ×3 (10:10→21:00)
[2021-09-10 17:08] VITALS: BP 125/67; TEMP 98.4
== END 2021-09-10 17:51 | disposition home or self-care (01) | DRG 673 ==
LOC: ERS 07:36 → SDC 11:31 → ONC 18:17 → MSONC 09-10 11:06
PROVIDERS: ADMIT Internal Medicine; ATTEND Internal Medicine
PROC: 5A1D70Z Performance of Urinary Filtration, Intermittent, Less than 6 Hours Per Day (ICD-10-PCS; principal; 2021-09-09)
PROC: 031C0ZF Bypass Left Radial Artery to Lower Arm Vein, Open Approach (ICD-10-PCS; 2021-09-09)
PROC: 0JH60XZ Insertion of Tunneled Vascular Access Device into Chest Subcutaneous Tissue and Fascia, Open Approach (ICD-10-PCS; 2021-09-09)
PROC: 02HV33Z Insertion of Infusion Device into Superior Vena Cava, Percutaneous Approach (ICD-10-PCS; 2021-09-09)
PROC: B5181ZA Fluoroscopy of Superior Vena Cava using Low Osmolar Contrast, Guidance (ICD-10-PCS; 2021-09-09)
PROC: 02HV33Z Insertion of Infusion Device into Superior Vena Cava, Percutaneous Approach (ICD-10-PCS; 2021-09-09)
PROC: B548ZZA Ultrasonography of Superior Vena Cava, Guidance (ICD-10-PCS; 2021-09-09)
DX: I12.0 Hypertensive chronic kidney disease with stage 5 chronic kidney disease or end stage renal disease (principal); N18.6 End stage renal disease; E87.2 Acidosis; Z20.822 Contact with and (suspected) exposure to COVID-19; G43.909 Migraine, unspecified, not intractable, without status migrainosus; E87.5 Hyperkalemia; D63.1 Anemia in chronic kidney disease; F32.A Depression, unspecified; F41.9 Anxiety disorder, unspecified; Z99.2 Dependence on renal dialysis; Z82.49 Family history of ischemic heart disease and other diseases of the circulatory system; Z79.899 Other long term (current) drug therapy
CPT/HCPCS: 71045; 80048; 80053; 81003; 81015; 83605; 83690; 83735; 85025; 86704; 86706; 86803; 87340; 93005; C1751; C1752; C1776; J0690; J1644; J2250; J2704; J2720; J2795; J3010; J7070; S0020; U0002